=== PATIENT | female | born 1935 | race Caucasian/White ===

== ENCOUNTER 2017-12-20 20:33 | Observation (INO) | payer MEDICARE, BC ==
[2017-12-20] MEDS ORDERED: Ativan 2 MG/1 ML VIAL IV ONE (20:52)
[2017-12-20] MEDS ORDERED: TRANDATE 20 MG/5 ML SYRINGE IV ONE ×2 (20:52→20:57)
--- NOTE | 2017-12-20 20:58 | ERPHSYRPT ---
- History of Present Illness Time Seen by Provider: 12/20/17 20:38 Historian: patient Exam Limitations: no limitations Patient Subjective Stated Complaint: HTN Triage Nursing Assessment: Patient brought back to ER via w/c and transferred to bed per self. Patient A+O X 3. Patient complains of HTN. Patient states her blood pressure at home 210/90. Patient took and extra Lisinopril 5mg. Patient states she has hx of TIA and was told by her doctor to come to ER when her blood pressure gets high. Patient states she feels weak. Physician History: Pt started c/o generalized weakness, dizziness, chest pain about 2 hours ago, her blood pressure was elevated. She denies headaches, no SOB, cough, fever, vomiting, no focal weakness, facial numbness, visual changes, or slurred speech. She had similar episode 4 months ago, when she was diagnosed with TIA in [place], and worked up but does not take ASA or Plavix. She is alert and oriented x4, slightly lethargic. Timing/Duration: today, hour(s) (2) Activities at Onset: none Quality: pressure Location: substernal Chest Pain Radiation: no radiation Severity of Pain-Max: moderate Severity of Pain-Current: none Modifying Factors: Improves With: nothing Associated Symptoms: nausea, dizziness Prior Chest Pain/Cardiac Workup: no prior chest pain Nitro Today/Relief: no nitro taken today Aspirin Treatment Today: no aspirin today Allergies/Adverse Reactions: No Known Drug Allergies Allergy (Unverified 12/20/17 20:47) Home Medications: ALPRAZolam [Alprazolam] 1 tab PO BID 12/20/17 [History] Lisinopril 0.5 tab PO BID 12/20/17 [History] Hx Tetanus, Diphtheria Vaccination/Date Given: No Hx Influenza Vaccination/Date Given: No Hx Pneumococcal Vaccination/Date Given: Yes (4 months ago) Immunizations Up to Date: Yes - Review of Systems Constitutional: No Symptoms Respiratory: No Symptoms Cardiac: Chest Pain Abdominal/Gastrointestinal: Nausea Neurological: Dizziness All Other Systems: Reviewed and Negative - Past Medical History Pertinent Past Medical History: Yes Neurological History: TIA ENT History: No Pertinent History Cardiac History: Hypertension Respiratory History: No Pertinent History Endocrine Medical History: No Pertinent History Musculoskeletal History: No Pertinent History GI Medical History: No Pertinent History History: No Pertinent History Psycho-Social History: No Pertinent History Female Reproductive Disorders: No Pertinent History - Past Surgical History Past Surgical History: Yes Neuro Surgical History: No Pertinent History Cardiac: No Pertinent History Respiratory: No Pertinent History Gastrointestinal: No Pertinent History Genitourinary: No Pertinent History Musculoskeletal: Joint Replacement Female Surgical History: No Pertinent History Other Surgical History: Right knee 4 years ago - Social History Smoking Status: Never smoker Exposure to second hand smoke: No Drug Use: none Patient Lives Alone: No - Female History Hx Last Menstrual Period: Menopausal Hx Now: No - Nursing Vital Signs Nursing Vital Signs: Initial Vital Signs Pulse Rate 98 H 12/20/17 20:35 Respiratory Rate 22 12/20/17 20:35 Blood Pressure 217/105 12/20/17 20:35 O2 Sat by Pulse Oximetry 98 12/20/17 20:35 Pain Scale Pain Intensity 0 - Physical Exam General Appearance: no apparent distress, alert Eye Exam: PERRL/EOMI, eyes nml inspection Ears, Nose, Throat Exam: normal ENT inspection, pharynx normal, moist mucous membranes Neck Exam: normal inspection, non-tender, supple, No carotid bruit, No JVD Respiratory Exam: normal breath sounds, lungs clear, airway intact, No chest tenderness, No respiratory distress Cardiovascular Exam: regular rate/rhythm, normal heart sounds, normal peripheral pulses, No murmur Gastrointestinal/Abdomen Exam: soft, normal bowel sounds, No tenderness, No distention, No mass, No guarding, No pulsatile mass Back Exam: normal inspection, No CVA tenderness Extremity Exam: normal inspection, No calf tenderness, No adriano's sign, No pedal edema Neurologic Exam: alert, oriented x 3, soaker meat II-XII nml as tested, normal mood/ affect, sensation nml, other (NIH scale: 0), No motor deficits, No motor weakness, No facial droop Skin Exam: normal color, warm, dry, No rash Lymphatic Exam: No adenopathy SpO2 Interpretation: normal SpO2: 98 Oxygen Delivery: Room Air - Course Nursing assessment & vital signs reviewed: Yes EKG Interpreted by Me: RATE (89/min), Left [place] Deviation, NORMAL INTERVALS, Non -specific ST Changes, Other ([facility]) - Radiology Exams Chest X-ray Interpretation: Interpreted by me, Negative - CT Exams Head CT Interpretation: Negative, Tele-radiologist Report Ordered Tests: Active Orders 24 hr Category Date Time Status Electric Power Machine Operator STAT Care 12/20/17 20:51 Active EKG-ER Only STAT Care 12/20/17 20:50 Active IV Insertion STAT Care 12/20/17 20:50 Active Oxygen-ED Only NASAL CANNULA 2 lpm Care 12/20/17 20:50 Active CHEST 1 VIEW (PORTABLE) Stat Exams 12/20/17 20:50 Taken HEAD WITHOUT CONTRAST [CT] Stat Exams 12/20/17 20:52 Taken CBC W DIFF Stat Lab 12/20/17 21:00 Results CK-Creatinine Phosphokinase Stat Lab 12/20/17 21:00 Completed CMP Stat Lab 12/20/17 21:00 Completed Erythrocyte Sedimentation Rate Stat Lab 12/20/17 21:00 Results NT PRO BNP Stat Lab 12/20/17 21:00 Completed PROTIME WITH INR Stat Lab 12/20/17 21:00 Completed PTT Stat Lab 12/20/17 21:00 Completed TROPONIN Q3H Lab 12/20/17 21:00 Completed TROPONIN Q3H Lab 12/21/17 00:00 Ordered TROPONIN Q3H Lab 12/21/17 03:00 Ordered TROPONIN Q3H Lab 12/21/17 06:00 Ordered TROPONIN Q3H Lab 12/21/17 09:00 Ordered UA W/RFX UR CULTURE Stat Lab 12/20/17 20:50 Uncollected Medication Summary Discontinued Medications Generic Name Dose Route Start Last Admin Trade Name Freq PRN Reason Stop Dose Admin Labetalol HCl 20 mg 12/20/17 20:52 12/20/17 20:59 Trandate 20 Mg/5 Ml Syringe IV 12/20/17 20:53 20 mg STAT ONE Administration Labetalol HCl Confirm 12/20/17 20:57 Trandate 20 Mg/5 Ml Syringe Administered 12/20/17 20:58 Dose 20 mg IV .STK-MED ONE Lorazepam 0.5 mg 12/20/17 20:52 Ativan 2 Mg/1 Ml Vial IV 12/20/17 20:53 STAT ONE Lab/Rad Data: Laboratory Result Diagrams 12/20/17 21:00 12/20/17 21:00 Laboratory Results 12/20/17 12/20/17 12/20/17 Range/Units 21:00 21:00 21:00 WBC (4.0-10.5) K/mm3 RBC (4.1-5.4) M/mm3 Hgb (12.0-16.0) gm/dl Hct (35-47) % MCV (78-100) fl MCH (26-32) pg MCHC (32-36) g/dl RDW (11.5-14.0) % Plt Count (150-450) K/mm3 MPV (6-9.5) fl Gran % (36.0-66.0) % Eos # (Auto) (0-0.5) Absolute Lymphs (auto) (1.0-4.6) Absolute Monos (auto) (0.0-1.3) Lymphocytes % (24.0-44.0) % Monocytes % (0.0-12.0) % Eosinophils % (0.00-5.0) % Basophils % (0.0-0.4) % Absolute Granulocytes (1.4-6.9) Basophils # (0-0.4) ESR PT 11.0 (9.95-12.35) SECONDS INR 0.95 (0.8-3.0) APTT 18.7 L (25.3-37.0) SECONDS Sodium 140 (137-145) mmol/L Potassium 3.8 (3.5-5.1) mmol/L Chloride 104 (98-107) mmol/L Carbon Dioxide 26 (22-30) mmol/L Anion Gap 13.6 (5-15) MEQ/L BUN 13 (7-17) mg/dL Creatinine 0.87 (0.52-1.04) mg/dL Estimated GFR > 60.0 ML/MIN Glucose 98 (74-106) mg/dL Calcium 10.0 (8.4-10.2) mg/dL Total Bilirubin 0.40 (0.2-1.3) mg/dL AST 30 (14-36) U/L ALT 22 (0-35) U/L Alkaline Phosphatase 89 (38-126) U/L Creatine Kinase 76 (30-135) U/L Troponin I < 0.012 (0.000-0.034) ng/mL NT-Pro-B Natriuret Pep 54.8 (0-1800) pg/mL Serum Total Protein 7.6 (6.3-8.2) g/dL Albumin 4.9 (3.5-5.0) g/dL 12/20/17 Range/Units 21:00 WBC 3.1 L (4.0-10.5) K/mm3 RBC 4.82 (4.1-5.4) M/mm3 Hgb 14.3 (12.0-16.0) gm/dl Hct 42.7 (35-47) % MCV 88.6 (78-100) fl MCH 29.7 (26-32) pg MCHC 33.5 (32-36) g/dl RDW 14.7 H (11.5-14.0) % Plt Count 89 L (150-450) K/mm3 MPV 12.1 H (6-9.5) fl Gran % 41.9 (36.0-66.0) % Eos # (Auto) 0.01 (0-0.5) Absolute Lymphs (auto) 1.29 (1.0-4.6) Absolute Monos (auto) 0.41 (0.0-1.3) Lymphocytes % 41.9 (24.0-44.0) % Monocytes % 13.3 H (0.0-12.0) % Eosinophils % 0.3 (0.00-5.0) % Basophils % 2.6 (0.0-0.4) % Absolute Granulocytes 1.29 L (1.4-6.9) Basophils # 0.08 (0-0.4) ESR Pending PT (9.95-12.35) SECONDS INR (0.8-3.0) APTT (25.3-37.0) SECONDS Sodium (137-145) mmol/L Potassium (3.5-5.1) mmol/L Chloride (98-107) mmol/L Carbon Dioxide (22-30) mmol/L Anion Gap (5-15) MEQ/L BUN (7-17) mg/dL Creatinine (0.52-1.04) mg/dL Estimated GFR ML/MIN Glucose (74-106) mg/dL Calcium (8.4-10.2) mg/dL Total Bilirubin (0.2-1.3) mg/dL AST (14-36) U/L ALT (0-35) U/L Alkaline Phosphatase (38-126) U/L Creatine Kinase (30-135) U/L Troponin I (0.000-0.034) ng/mL NT-Pro-B Natriuret Pep (0-1800) pg/mL Serum Total Protein (6.3-8.2) g/dL Albumin (3.5-5.0) g/dL - Progress Progress: improved Air Movement: good Progress Note: 12/20/17 23:01 Pt states, she feels better, denies headaches or chest pain, more comfortable and alert, blood pressure: 179/84. I called Dr Ellington, discussed our results and her current condition with him, he agreed to admit her to telemetry for observation with Chest Pain, Hypertensive crisis, possible TIA. Blood Culture(s) Obtained: No Antibiotics given: No Discussed with .: Alfred Will see patient in: hospital (observation) Counseled pt/family regarding: lab results, diagnosis, need for follow-up, rad results - Departure Time of Disposition: 23:04 Departure Disposition: Observation Clinical Impression: Hypertensive crisis, TIA (transient ischemic attack) Chest pain Qualifiers: Chest pain type: unspecified Qualified Code(s): R07.9 - Chest pain, unspecified Condition: Stable Critical Care Time: Yes Critical Care Time(excluding separately billable procedures): 30-74 minutes Referrals: JUSTINA ELLINGTON MD [Primary Care Provider] - Instructions: Malignant Hypertension (DC)
[2017-12-20 21:14] LABS: INR 0.95 (0.8-3.0)
[2017-12-20 21:17] LABS: PTT 18.7 SECONDS (25.3-37.0)
[2017-12-20 21:29] LABS: ALBUMIN 4.9 g/dL (3.5-5.0); ALKALINE PHOSPHATASE 89 U/L (38-126); ANION GAP 13.6 MEQ/L (5-15); BLOOD UREA NITROGEN 13 mg/dL (7-17); CHLORIDE 104 mmol/L (98-107); CK-Creatinine Phosphokinase 76 U/L (30-135); Carbon Dioxide 26 mmol/L (22-30); Creatinine 1 0.87 mg/dL (0.52-1.04); Glucose 98 mg/dL (74-106); NT PRO BNP 54.8 pg/mL (0-1800); Potassium 3.8 mmol/L (3.5-5.1); SGOT/AST 30 U/L (14-36); SGPT/ALT 22 U/L (0-35); SODIUM 140 mmol/L (137-145); Total Protein 7.6 g/dL (6.3-8.2)
[2017-12-20 22:09] LABS: BASOPHIL % 2.6 % (0.0-0.4); Basophil (Absolute #) 0.08 (0-0.4); Eosinophil % 0.3 % (0.00-5.0); Eosinophil (Absolute #) 0.01 (0-0.5); Granulocyte Absolute (ANC) 1.29 (1.4-6.9); Granulocytes % 41.9 % (36.0-66.0); Hematocrit 42.7 % (35-47); Hemoglobin 14.3 gm/dl (12.0-16.0); Lymphocyte (Absolute #) 1.29 (1.0-4.6); Lymphocytes % 41.9 % (24.0-44.0); Mean Cell Volume 88.6 fl (78-100); Mean Corpuscular Hemoglobin 29.7 pg (26-32); Mean Corpuscular Hgb Concent. 33.5 g/dl (32-36); Mean Platelet Volume 12.1 fl (6-9.5); Monocyte (Absolute #) 0.41 (0.0-1.3); Monocytes % 13.3 % (0.0-12.0); Platelet Count 89 K/mm3 (150-450); Red Blood Count 4.82 M/mm3 (4.1-5.4); Red Cell Distribution Width 14.7 % (11.5-14.0); White Blood Count 3.1 K/mm3 (4.0-10.5)
[2017-12-20] MEDS ORDERED: Ativan 2 MG/1 ML VIAL ONE (22:59)
[2017-12-20] MEDS ORDERED: Zofran 4 MG/2 ML VIAL IV PRN (23:04)
[2017-12-20] MEDS ORDERED: MAALOX ES 30 ML UNIT DOSE PO PRN (23:04)
[2017-12-20] MEDS ORDERED: TYLENOL 325 MG PO PRN (23:04)
[2017-12-20] MEDS ORDERED: MILK OF MAGNESIA 30 ML PO PRN (23:04)
[2017-12-20] MEDS ORDERED: Senokot-S Tablet PO PRN (23:04)
[2017-12-20] MEDS ORDERED: TRANDATE 20 MG/5 ML SYRINGE IV PRN (23:06)
[2017-12-20 23:09] LABS: Erythrocyte Sedimentation Rate 5 mm/hr (0-20)
[2017-12-20] MEDS ORDERED: Ecotrin 325 MG ONE (23:14)
[2017-12-21 04:50] LABS: Appearance CLEAR (CLEAR); Bilirubin NEGATIVE (NEGATIVE); Blood SMALL Ery/ul (0-5); Glucose NEGATIVE (NEGATIVE); Ketones NEGATIVE (NEGATIVE); Leukocyte Esterase NEGATIVE (NEGATIVE); Nitrite NEGATIVE (NEGATIVE); Protein,Urine Dip NEGATIVE (Negative); Specific Gravity 1.009 (1.005-1.025); Urobilinogen NEGATIVE mg/dL (0-1)
[2017-12-21 05:01] LABS: Risk Ratio 2.1
[2017-12-21 05:04] LABS: Slide Review 1 YES
[2017-12-21] MEDS ORDERED: TRANDATE 20 MG/5 ML SYRINGE IV PRN (06:45)
[2017-12-21] MEDS ORDERED: TRANDATE 100MG/20 ML MDV IV PRN ×2 (07:11→07:15)
[2017-12-21 07:12] VITALS: PULSE 79
--- NOTE | 2017-12-21 08:34 | XRAY ---
Indication: Chest pain. Comparison: July 11, 2008. Portable chest again demonstrates left base subsegmental atelectasis/scarring. Remaining heart and lungs normal. Bony thorax intact again with mild osteopenia and degenerative changes. No new/acute findings. Impression: Stable nonacute chest with chronic features.
--- NOTE | 2017-12-21 08:36 | XRAY ---
Indication: Dizziness, hypertension, and chest pain. History of TIA. Multiple contiguous axial images obtained through the head without contrast. Comparison: July 11, 2008. Left external ear hearing aid produces mild beam artifact. Ventriculosulcal pattern appears symmetric. No acute intracranial hemorrhage, abnormal extra-axial fluid collection, or mass effect. Fourth ventricle is midline without hydrocephalus. North-white matter differentiation is preserved. Bony calvarium intact. Visualized paranasal sinuses and mastoid air cells are clear. Impression: Beam artifact from left hearing aid. Remaining CT head without contrast exam is again grossly normal. CT DI 66.90
[2017-12-21] MEDS ORDERED: Ecotrin 325 MG PO SCH (10:00)
[2017-12-21] MEDS ORDERED: xanAX 0.25 MG PO SCH (11:00)
[2017-12-21] MEDS ORDERED: Zestril 5 MG PO SCH (11:00)
[2017-12-21 11:54] VITALS: O2SAT 97
[2017-12-21 12:01] VITALS: BP 178/78
--- NOTE | 2017-12-21 12:20 | PCM.SSS ---
History of Present Illness - Chief Complaint Chief Complaint: very high blood pressure History of Present Illness: is a 82 year old female. Pt started c/o generalized weakness, dizziness, chest pain about 2 hours ago, her blood pressure was elevated. She denies headaches, no SOB, cough, fever, vomiting, no focal weakness, facial numbness, visual changes, or slurred speech. She had similar episode 4 months ago, when she was diagnosed with TIA in [place], and worked up but does not take ASA or Plavix. She is alert and oriented x4, slightly lethargic. - Review of Systems Constitutional: No Fever, No Chills Eyes: No Symptoms Ears, Nose, & Throat: No Symptoms Respiratory: No Cough, No Short Of Breath Cardiac: No Chest Pain, No Edema, No Syncope Abdominal/Gastrointestinal: No Abdominal Pain, No Nausea, No Vomiting, No Diarrhea Genitourinary Symptoms: No Dysuria Musculoskeletal: No Back Pain, No Neck Pain Skin: No Rash Neurological: No Dizziness, No Focal Weakness, No Sensory Changes Psychological: No Symptoms Endocrine: No Symptoms Hematologic/Lymphatic: No Symptoms Immunological/Allergic: No Symptoms Medications & Allergies Home Medications: Home Medication List ALPRAZolam [Alprazolam] 0.25 mg PO BID 12/20/17 [History Confirmed 12/21/17] Lisinopril 5 mg PO BID #60 tablet 12/21/17 [Rx] Rosuvastatin Calcium [Crestor] 5 mg PO HS 12/21/17 [History Confirmed 12/21/17] Allergies/Adverse Reactions: Allergies Allergy/AdvReac Type Severity Reaction Status Date / Time No Known Drug Allergies Allergy Verified 12/21/17 00:02 - Past Medical History Past Medical History: Yes Neurological History: TIA ENT History: No Pertinent History Cardiac History: Hypertension Respiratory History: No Pertinent History Endocrine Medical History: No Pertinent History Musculoskelatal History: Arthritis GI Medical History: No Pertinent History History: No Pertinent History Pyscho-Social History: No Pertinent History Reproductive Disorders: No Pertinent History - Female History Hx Last Menstrual Period: Menopausal Are you now?: No - Past Surgical History Past Surgical History: Yes Neuro Surgical History: No Pertinent History Cardiac History: No Pertinent History Respiratory Surgery: No Pertinent History GI Surgical History: No Pertinent History Genitourinary Surgical Hx: No Pertinent History Musculskeletal Surgical Hx: Joint Replacement Female Surgical History: No Pertinent History Other Surgical History: Right knee 4 years ago - Social History Smoking Status: Never smoker Exposure to second hand smoke: No Alcohol: None Drug Use: none - Physical Exam Vital Signs: Vital Signs - 24 hr Temp Pulse Resp BP Pulse Ox 12/21/17 12:01 178/78 12/21/17 11:53 97 12/21/17 10:02 20 183/79 12/21/17 08:00 96 12/21/17 07:11 97.7 F 79 20 187/79 96 12/21/17 06:16 181/86 12/21/17 05:30 196/84 12/21/17 04:00 98.5 F 86 24 192/91 97 12/21/17 00:01 97.7 F 75 18 189/79 95 12/21/17 00:00 95 12/20/17 23:59 97.7 F 75 20 189/79 95 12/20/17 23:04 98 12/20/17 22:55 74 20 179/84 98 12/20/17 22:06 79 18 175/96 97 12/20/17 21:06 77 173/88 12/20/17 21:03 86 200/85 12/20/17 20:35 98 H 22 217/105 98 Oxygen-Last 24 hours O2 Percentage 2 Liters = 28% O2 Percentage 2 Liters = 28% General Appearance: no apparent distress, alert Neurologic Exam: alert, oriented x 3, cooperative, normal mood/affect, nml cerebellar function, nml station & gait, sensation nml, No motor deficits Eye Exam: PERRL/EOMI, eyes nml inspection Ears, Nose, Throat Exam: normal ENT inspection, TMs normal, pharynx normal, moist mucous membranes Neck Exam: normal inspection, non-tender, supple, full range of motion Respiratory Exam: normal breath sounds, lungs clear, No respiratory distress Cardiovascular Exam: regular rate/rhythm, normal heart sounds, normal peripheral pulses Gastrointestinal/Abdomen Exam: soft, normal bowel sounds, No tenderness, No mass Back Exam: normal inspection, normal range of motion, No CVA tenderness, No vertebral tenderness Extremity Exam: normal inspection, normal range of motion, pelvis stable Skin Exam: normal color, warm, dry, No rash Lymphatic Exam: No adenopathy Results - Labs Lab/Micro Results: Lab Results-Last 24 Hours 12/20/17 12/20/17 12/20/17 Range/Units 21:00 21:00 21:00 WBC 3.1 L (4.0-10.5) K/mm3 RBC 4.82 (4.1-5.4) M/mm3 Hgb 14.3 (12.0-16.0) gm/dl Hct 42.7 (35-47) % MCV 88.6 (78-100) fl MCH 29.7 (26-32) pg MCHC 33.5 (32-36) g/dl RDW 14.7 H (11.5-14.0) % Plt Count 89 L (150-450) K/mm3 MPV 12.1 H (6-9.5) fl Gran % 41.9 (36.0-66.0) % Eos # (Auto) 0.01 (0-0.5) Absolute Lymphs (auto) 1.29 (1.0-4.6) Absolute Monos (auto) 0.41 (0.0-1.3) Lymphocytes % 41.9 (24.0-44.0) % Monocytes % 13.3 H (0.0-12.0) % Eosinophils % 0.3 (0.00-5.0) % Basophils % 2.6 (0.0-0.4) % Absolute Granulocytes 1.29 L (1.4-6.9) Basophils # 0.08 (0-0.4) ESR 5 (0-20) mm/hr PT 11.0 (9.95-12.35) SECONDS INR 0.95 (0.8-3.0) APTT 18.7 L (25.3-37.0) SECONDS Sodium 140 (137-145) mmol/L Potassium 3.8 (3.5-5.1) mmol/L Chloride 104 (98-107) mmol/L Carbon Dioxide 26 (22-30) mmol/L Anion Gap 13.6 (5-15) MEQ/L BUN 13 (7-17) mg/dL Creatinine 0.87 (0.52-1.04) mg/dL Estimated GFR > 60.0 ML/MIN Glucose 98 (74-106) mg/dL Calcium 10.0 (8.4-10.2) mg/dL Total Bilirubin 0.40 (0.2-1.3) mg/dL AST 30 (14-36) U/L ALT 22 (0-35) U/L Alkaline Phosphatase 89 (38-126) U/L Creatine Kinase 76 (30-135) U/L Troponin I (0.000-0.034) ng/mL NT-Pro-B Natriuret Pep 54.8 (0-1800) pg/mL Serum Total Protein 7.6 (6.3-8.2) g/dL Albumin 4.9 (3.5-5.0) g/dL Triglycerides (30-150) mg/dL Cholesterol (50-200) mg/dL LDL Cholesterol (30-100) mg/dL HDL Cholesterol (40-60) mg/dL Heart Disease Risk Ratio Urine Color (YELLOW) Urine Appearance (CLEAR) Urine pH (5-6) Ur Specific Jackson (1.005-1.025) Urine Protein (Negative) Urine Ketones (NEGATIVE) Urine Blood (0-5) Nitesh/ul Urine Nitrite (NEGATIVE) Urine Bilirubin (NEGATIVE) Urine Urobilinogen (0-1) mg/dL Ur Leukocyte Esterase (NEGATIVE) Urine WBC (Auto) (0-5) /HPF Urine RBC (Auto) (0-2) /HPF U Epithel Cells (Auto) (FEW) /HPF Urine Mucus (Auto) (NEGATIVE) /HPF Urine Culture Reflexed (NO) Urine Glucose (NEGATIVE) mg/dL Slides for Path Review YES 12/20/17 12/21/17 12/21/17 Range/Units 21:00 00:40 03:30 WBC (4.0-10.5) K/mm3 RBC (4.1-5.4) M/mm3 Hgb (12.0-16.0) gm/dl Hct (35-47) % MCV (78-100) fl MCH (26-32) pg MCHC (32-36) g/dl RDW (11.5-14.0) % Plt Count (150-450) K/mm3 MPV (6-9.5) fl Gran % (36.0-66.0) % Eos # (Auto) (0-0.5) Absolute Lymphs (auto) (1.0-4.6) Absolute Monos (auto) (0.0-1.3) Lymphocytes % (24.0-44.0) % Monocytes % (0.0-12.0) % Eosinophils % (0.00-5.0) % Basophils % (0.0-0.4) % Absolute Granulocytes (1.4-6.9) Basophils # (0-0.4) ESR (0-20) mm/hr PT (9.95-12.35) SECONDS INR (0.8-3.0) APTT (25.3-37.0) SECONDS Sodium (137-145) mmol/L Potassium (3.5-5.1) mmol/L Chloride (98-107) mmol/L Carbon Dioxide (22-30) mmol/L Anion Gap (5-15) MEQ/L BUN (7-17) mg/dL Creatinine (0.52-1.04) mg/dL Estimated GFR ML/MIN Glucose (74-106) mg/dL Calcium (8.4-10.2) mg/dL Total Bilirubin (0.2-1.3) mg/dL AST (14-36) U/L ALT (0-35) U/L Alkaline Phosphatase (38-126) U/L Creatine Kinase (30-135) U/L Troponin I < 0.012 0.027 0.027 (0.000-0.034) ng/mL NT-Pro-B Natriuret Pep (0-1800) pg/mL Serum Total Protein (6.3-8.2) g/dL Albumin (3.5-5.0) g/dL Triglycerides (30-150) mg/dL Cholesterol (50-200) mg/dL LDL Cholesterol (30-100) mg/dL HDL Cholesterol (40-60) mg/dL Heart Disease Risk Ratio Urine Color (YELLOW) Urine Appearance (CLEAR) Urine pH (5-6) Ur Specific Jackson (1.005-1.025) Urine Protein (Negative) Urine Ketones (NEGATIVE) Urine Blood (0-5) Nitesh/ul Urine Nitrite (NEGATIVE) Urine Bilirubin (NEGATIVE) Urine Urobilinogen (0-1) mg/dL Ur Leukocyte Esterase (NEGATIVE) Urine WBC (Auto) (0-5) /HPF Urine RBC (Auto) (0-2) /HPF U Epithel Cells (Auto) (FEW) /HPF Urine Mucus (Auto) (NEGATIVE) /HPF Urine Culture Reflexed (NO) Urine Glucose (NEGATIVE) mg/dL Slides for Path Review 12/21/17 12/21/17 12/21/17 Range/Units 03:30 03:35 04:41 WBC (4.0-10.5) K/mm3 RBC (4.1-5.4) M/mm3 Hgb (12.0-16.0) gm/dl Hct (35-47) % MCV (78-100) fl MCH (26-32) pg MCHC (32-36) g/dl RDW (11.5-14.0) % Plt Count (150-450) K/mm3 MPV (6-9.5) fl Gran % (36.0-66.0) % Eos # (Auto) (0-0.5) Absolute Lymphs (auto) (1.0-4.6) Absolute Monos (auto) (0.0-1.3) Lymphocytes % (24.0-44.0) % Monocytes % (0.0-12.0) % Eosinophils % (0.00-5.0) % Basophils % (0.0-0.4) % Absolute Granulocytes (1.4-6.9) Basophils # (0-0.4) ESR (0-20) mm/hr PT (9.95-12.35) SECONDS INR (0.8-3.0) APTT (25.3-37.0) SECONDS Sodium (137-145) mmol/L Potassium (3.5-5.1) mmol/L Chloride (98-107) mmol/L Carbon Dioxide (22-30) mmol/L Anion Gap (5-15) MEQ/L BUN (7-17) mg/dL Creatinine (0.52-1.04) mg/dL Estimated GFR ML/MIN Glucose (74-106) mg/dL Calcium (8.4-10.2) mg/dL Total Bilirubin (0.2-1.3) mg/dL AST (14-36) U/L ALT (0-35) U/L Alkaline Phosphatase (38-126) U/L Creatine Kinase (30-135) U/L Troponin I 0.019 (0.000-0.034) ng/mL NT-Pro-B Natriuret Pep (0-1800) pg/mL Serum Total Protein (6.3-8.2) g/dL Albumin (3.5-5.0) g/dL Triglycerides 93 (30-150) mg/dL Cholesterol 190 (50-200) mg/dL LDL Cholesterol 68 (30-100) mg/dL HDL Cholesterol 90 H (40-60) mg/dL Heart Disease Risk Ratio 2.1 Urine Color YELLOW (YELLOW) Urine Appearance CLEAR (CLEAR) Urine pH 6.0 (5-6) Ur Specific Jackson 1.009 (1.005-1.025) Urine Protein NEGATIVE (Negative) Urine Ketones NEGATIVE (NEGATIVE) Urine Blood SMALL (0-5) Nitesh/ul Urine Nitrite NEGATIVE (NEGATIVE) Urine Bilirubin NEGATIVE (NEGATIVE) Urine Urobilinogen NEGATIVE (0-1) mg/dL Ur Leukocyte Esterase NEGATIVE (NEGATIVE) Urine WBC (Auto) 0-2 (0-5) /HPF Urine RBC (Auto) 0-2 (0-2) /HPF U Epithel Cells (Auto) RARE (FEW) /HPF Urine Mucus (Auto) SLIGHT (NEGATIVE) /HPF Urine Culture Reflexed no (NO) Urine Glucose NEGATIVE (NEGATIVE) mg/dL Slides for Path Review 12/21/17 Range/Units 09:19 WBC (4.0-10.5) K/mm3 RBC (4.1-5.4) M/mm3 Hgb (12.0-16.0) gm/dl Hct (35-47) % MCV (78-100) fl MCH (26-32) pg MCHC (32-36) g/dl RDW (11.5-14.0) % Plt Count (150-450) K/mm3 MPV (6-9.5) fl Gran % (36.0-66.0) % Eos # (Auto) (0-0.5) Absolute Lymphs (auto) (1.0-4.6) Absolute Monos (auto) (0.0-1.3) Lymphocytes % (24.0-44.0) % Monocytes % (0.0-12.0) % Eosinophils % (0.00-5.0) % Basophils % (0.0-0.4) % Absolute Granulocytes (1.4-6.9) Basophils # (0-0.4) ESR (0-20) mm/hr PT (9.95-12.35) SECONDS INR (0.8-3.0) APTT (25.3-37.0) SECONDS Sodium (137-145) mmol/L Potassium (3.5-5.1) mmol/L Chloride (98-107) mmol/L Carbon Dioxide (22-30) mmol/L Anion Gap (5-15) MEQ/L BUN (7-17) mg/dL Creatinine (0.52-1.04) mg/dL Estimated GFR ML/MIN Glucose (74-106) mg/dL Calcium (8.4-10.2) mg/dL Total Bilirubin (0.2-1.3) mg/dL AST (14-36) U/L ALT (0-35) U/L Alkaline Phosphatase (38-126) U/L Creatine Kinase (30-135) U/L Troponin I 0.013 (0.000-0.034) ng/mL NT-Pro-B Natriuret Pep (0-1800) pg/mL Serum Total Protein (6.3-8.2) g/dL Albumin (3.5-5.0) g/dL Triglycerides (30-150) mg/dL Cholesterol (50-200) mg/dL LDL Cholesterol (30-100) mg/dL HDL Cholesterol (40-60) mg/dL Heart Disease Risk Ratio Urine Color (YELLOW) Urine Appearance (CLEAR) Urine pH (5-6) Ur Specific Jackson (1.005-1.025) Urine Protein (Negative) Urine Ketones (NEGATIVE) Urine Blood (0-5) Nitesh/ul Urine Nitrite (NEGATIVE) Urine Bilirubin (NEGATIVE) Urine Urobilinogen (0-1) mg/dL Ur Leukocyte Esterase (NEGATIVE) Urine WBC (Auto) (0-5) /HPF Urine RBC (Auto) (0-2) /HPF U Epithel Cells (Auto) (FEW) /HPF Urine Mucus (Auto) (NEGATIVE) /HPF Urine Culture Reflexed (NO) Urine Glucose (NEGATIVE) mg/dL Slides for Path Review - Radiology Impressions Radiology Exams & Impressions: Radiology Procedures Category Date Time Status CHEST 1 VIEW (PORTABLE) Stat Exams 12/20/17 20:50 Completed HEAD WITHOUT CONTRAST [CT] Stat Exams 12/20/17 20:52 Completed - Other Procedures and Tests Respiratory Therapy 12/22/17 05:00 EKG ROUTINE 12/23/17 05:00 EKG ROUTINE Assessment/Plan (1) Hypertensive crisis Current Visit: Yes Status: Acute Assessment & Plan: Last Vital Signs Temp 97.7 F 12/21/17 07:11 Pulse 79 12/21/17 07:11 Resp 20 12/21/17 10:02 BP 178/78 12/21/17 12:01 Pulse Ox 97 12/21/17 11:53 Allergies No Known Drug Allergies Allergy (Verified 12/21/17 00:02) Active Medications Acetaminophen (Tylenol 325 Mg) 650 mg PO Q4H PRN PRN PRN Reason: PAIN AND/OR FEVER Stop: 01/19/18 23:03 Al Hydrox/Mg Hydrox/Simethicone (Maalox Es 30 Ml Unit Dose) 30 ml PO Q4H PRN PRN PRN Reason: INDIGESTION Stop: 01/19/18 23:03 Alprazolam (Xanax 0.25 Mg) 0.25 mg PO BID [facility] Stop: 01/20/18 10:59 Last Admin: 12/21/17 10:36 Dose: 0.25 mg Aspirin (Ecotrin 325 Mg) 325 mg PO DAILY [facility] Stop: 01/20/18 09:59 Last Admin: 12/21/17 09:59 Dose: 325 mg Labetalol HCl (Trandate 100mg/20 Ml Mdv) 20 mg IV Q6H PRN PRN PRN Reason: HYPERTENSION Stop: 01/20/18 07:10 Lisinopril (Zestril 5 Mg) 2.5 mg PO BID [facility] Stop: 01/20/18 10:59 Last Admin: 12/21/17 10:36 Dose: 2.5 mg Magnesium Hydroxide (Milk Of Magnesia 30 Ml) 30 - 60 ml PO QDP PRN PRN Reason: CONSTIPATION Stop: 01/19/18 23:03 Ondansetron HCl (Zofran 4 Mg/2 Ml Vial) 4 mg IV Q4H PRN PRN PRN Reason: NAUSEA/VOMITING Stop: 01/19/18 23:03 Senna/Docusate Sodium (Senokot-S Tablet) 2 udtab PO BID PRN PRN PRN Reason: CONSTIPATION Stop: 01/19/18 23:03 Simvastatin (Zocor 10mg) 10 mg PO HS [facility] Stop: 01/20/18 21:59 Intake & Output 12/21/17 12/22/17 11:59 11:59 Intake Total 720 Output Total 450 Balance 270 Weight 69 kg Orders 12/21/17 11:00 Alprazolam 0.25 mg [xanAX 0.25 MG] 0.25 mg PO BID Lisinopril 5 mg [Zestril 5 MG] 2.5 mg PO BID 12/21/17 22:00 Simvastatin 10 mg [Zocor 10MG] 10 mg PO HS 12/22/17 05:00 EKG ROUTINE 12/23/17 05:00 EKG ROUTINE Lab Tests 12/20/17 12/20/17 12/20/17 21:00 21:00 21:00 WBC 3.1 L RBC 4.82 Hgb 14.3 Hct 42.7 MCV 88.6 MCH 29.7 MCHC 33.5 RDW 14.7 H Plt Count 89 L MPV 12.1 H Gran % 41.9 Eos # (Auto) 0.01 Absolute Lymphs (auto) 1.29 Absolute Monos (auto) 0.41 Lymphocytes % 41.9 Monocytes % 13.3 H Eosinophils % 0.3 Basophils % 2.6 Absolute Granulocytes 1.29 L Basophils # 0.08 ESR 5 PT 11.0 INR 0.95 APTT 18.7 L Sodium 140 Potassium 3.8 Chloride 104 Carbon Dioxide 26 Anion Gap 13.6 BUN 13 Creatinine 0.87 Estimated GFR > 60.0 Glucose 98 Calcium 10.0 Total Bilirubin 0.40 AST 30 ALT 22 Alkaline Phosphatase 89 Creatine Kinase 76 Troponin I NT-Pro-B Natriuret Pep 54.8 Serum Total Protein 7.6 Albumin 4.9 Triglycerides Cholesterol LDL Cholesterol HDL Cholesterol Heart Disease Risk Ratio Urine Color Urine Appearance Urine pH Ur Specific Jackson Urine Protein Urine Ketones Urine Blood Urine Nitrite Urine Bilirubin Urine Urobilinogen Ur Leukocyte Esterase Urine WBC (Auto) Urine RBC (Auto) U Epithel Cells (Auto) Urine Mucus (Auto) Urine Culture Reflexed Urine Glucose Slides for Path Review YES 12/20/17 12/21/17 12/21/17 21:00 00:40 03:30 WBC RBC Hgb Hct MCV MCH MCHC RDW Plt Count MPV Gran % Eos # (Auto) Absolute Lymphs (auto) Absolute Monos (auto) Lymphocytes % Monocytes % Eosinophils % Basophils % Absolute Granulocytes Basophils # ESR PT INR APTT Sodium Potassium Chloride Carbon Dioxide Anion Gap BUN Creatinine Estimated GFR Glucose Calcium Total Bilirubin AST ALT Alkaline Phosphatase Creatine Kinase Troponin I < 0.012 0.027 0.027 NT-Pro-B Natriuret Pep Serum Total Protein Albumin Triglycerides Cholesterol LDL Cholesterol HDL Cholesterol Heart Disease Risk Ratio Urine Color Urine Appearance Urine pH Ur Specific Jackson Urine Protein Urine Ketones Urine Blood Urine Nitrite Urine Bilirubin Urine Urobilinogen Ur Leukocyte Esterase Urine WBC (Auto) Urine RBC (Auto) U Epithel Cells (Auto) Urine Mucus (Auto) Urine Culture Reflexed Urine Glucose Slides for Path Review 12/21/17 12/21/17 12/21/17 03:30 03:35 04:41 WBC RBC Hgb Hct MCV MCH MCHC RDW Plt Count MPV Gran % Eos # (Auto) Absolute Lymphs (auto) Absolute Monos (auto) Lymphocytes % Monocytes % Eosinophils % Basophils % Absolute Granulocytes Basophils # ESR PT INR APTT Sodium Potassium Chloride Carbon Dioxide Anion Gap BUN Creatinine Estimated GFR Glucose Calcium Total Bilirubin AST ALT Alkaline Phosphatase Creatine Kinase Troponin I 0.019 NT-Pro-B Natriuret Pep Serum Total Protein Albumin Triglycerides 93 Cholesterol 190 LDL Cholesterol 68 HDL Cholesterol 90 H Heart Disease Risk Ratio 2.1 Urine Color YELLOW Urine Appearance CLEAR Urine pH 6.0 Ur Specific Jackson 1.009 Urine Protein NEGATIVE Urine Ketones NEGATIVE Urine Blood SMALL Urine Nitrite NEGATIVE Urine Bilirubin NEGATIVE Urine Urobilinogen NEGATIVE Ur Leukocyte Esterase NEGATIVE Urine WBC (Auto) 0-2 Urine RBC (Auto) 0-2 U Epithel Cells (Auto) RARE Urine Mucus (Auto) SLIGHT Urine Culture Reflexed no Urine Glucose NEGATIVE Slides for Path Review 12/21/17 09:19 WBC RBC Hgb Hct MCV MCH MCHC RDW Plt Count MPV Gran % Eos # (Auto) Absolute Lymphs (auto) Absolute Monos (auto) Lymphocytes % Monocytes % Eosinophils % Basophils % Absolute Granulocytes Basophils # ESR PT INR APTT Sodium Potassium Chloride Carbon Dioxide Anion Gap BUN Creatinine Estimated GFR Glucose Calcium Total Bilirubin AST ALT Alkaline Phosphatase Creatine Kinase Troponin I 0.013 NT-Pro-B Natriuret Pep Serum Total Protein Albumin Triglycerides Cholesterol LDL Cholesterol HDL Cholesterol Heart Disease Risk Ratio Urine Color Urine Appearance Urine pH Ur Specific Jackson Urine Protein Urine Ketones Urine Blood Urine Nitrite Urine Bilirubin Urine Urobilinogen Ur Leukocyte Esterase Urine WBC (Auto) Urine RBC (Auto) U Epithel Cells (Auto) Urine Mucus (Auto) Urine Culture Reflexed Urine Glucose Slides for Path Review Code(s): I16.9 - HYPERTENSIVE CRISIS, UNSPECIFIED Hospital Summary - Hospital Course Hospital Course: Chief Complaint Diagnosis Hypertensive crisis/TIA Allergies Allergy/AdvReac Type Severity Reaction Status Date / Time No Known Drug Allergies Allergy Verified 12/21/17 00:02 Vital Signs (Last 24 hours) Temp Pulse Resp BP Pulse Ox 12/21/17 12:01 178/78 12/21/17 11:53 97 12/21/17 10:02 20 183/79 12/21/17 08:00 96 12/21/17 07:11 97.7 F 79 20 187/79 96 12/21/17 06:16 181/86 12/21/17 05:30 196/84 12/21/17 04:00 98.5 F 86 24 192/91 97 12/21/17 00:01 97.7 F 75 18 189/79 95 12/21/17 00:00 95 12/20/17 23:59 97.7 F 75 20 189/79 95 12/20/17 23:04 98 12/20/17 22:55 74 20 179/84 98 12/20/17 22:06 79 18 175/96 97 12/20/17 21:06 77 173/88 12/20/17 21:03 86 200/85 12/20/17 20:35 98 H 22 217/105 98 Home Medications Medication Instructions Recorded Confirmed Last Taken Type ALPRAZolam [Alprazolam] 0.25 mg PO BID 12/20/17 12/21/17 12/19/17 21:30 History Lisinopril 2.5 mg PO BID 12/20/17 12/21/17 12/20/17 17:30 History Rosuvastatin Calcium [Crestor] 5 mg PO HS 12/21/17 12/21/17 12/20/17 17:30 History Current Medications Generic Name Dose Route Start Last Admin Trade Name Freq PRN Reason Stop Dose Admin Acetaminophen 650 mg 12/20/17 23:04 Tylenol 325 Mg PO 01/19/18 23:03 Q4H PRN PRN PAIN AND/OR FEVER Al Hydrox/Mg Hydrox/Simethicone 30 ml 12/20/17 23:04 Maalox Es 30 Ml Unit Dose PO 01/19/18 23:03 Q4H PRN PRN INDIGESTION Alprazolam 0.25 mg 12/21/17 11:00 12/21/17 10:36 Xanax 0.25 Mg PO 01/20/18 10:59 0.25 mg BID LAKSHMI Administration Aspirin 325 mg 12/21/17 10:00 12/21/17 09:59 Ecotrin 325 Mg PO 01/20/18 09:59 325 mg DAILY LAKSHMI Administration Labetalol HCl 20 mg 12/21/17 07:15 Trandate 100mg/20 Ml Mdv IV 01/20/18 07:10 Q6H PRN PRN HYPERTENSION Lisinopril 2.5 mg 12/21/17 11:00 12/21/17 10:36 Zestril 5 Mg PO 01/20/18 10:59 2.5 mg BID LAKSHMI Administration Magnesium Hydroxide 30 - 60 ml 12/20/17 23:04 Milk Of Magnesia 30 Ml PO 01/19/18 23:03 QDP PRN CONSTIPATION Ondansetron HCl 4 mg 12/20/17 23:04 Zofran 4 Mg/2 Ml Vial IV 01/19/18 23:03 Q4H PRN PRN NAUSEA/VOMITING Senna/Docusate Sodium 2 udtab 12/20/17 23:04 Senokot-S Tablet PO 01/19/18 23:03 BID PRN PRN CONSTIPATION Simvastatin 10 mg 12/21/17 22:00 Zocor 10mg PO 01/20/18 21:59 HS [facility] Discontinued Medications Generic Name Dose Route Start Last Admin Trade Name Freq PRN Reason Stop Dose Admin Aspirin 325 mg 12/21/17 23:00 12/20/17 23:17 Ecotrin 325 Mg PO 12/21/17 23:01 325 mg STAT ONE Administration Aspirin Confirm 12/20/17 23:14 Ecotrin 325 Mg Administered 12/20/17 23:15 Dose 325 mg .ROUTE .STK-MED ONE Labetalol HCl 20 mg 12/20/17 20:52 12/20/17 20:59 Trandate 20 Mg/5 Ml Syringe IV 12/20/17 20:53 20 mg STAT ONE Administration Labetalol HCl Confirm 12/20/17 20:57 Trandate 20 Mg/5 Ml Syringe Administered 12/20/17 20:58 Dose 20 mg IV .STK-MED ONE Labetalol HCl 20 mg 12/20/17 23:06 12/21/17 04:01 Trandate 20 Mg/5 Ml Syringe IV 01/19/18 23:05 20 mg Q6H PRN Administration HYPERTENSION Labetalol HCl 20 mg 12/21/17 06:45 Trandate 20 Mg/5 Ml Syringe IV 01/20/18 06:44 Q6H PRN PRN HYPERTENSION Labetalol HCl 20 mg 12/21/17 07:11 Trandate 100mg/20 Ml Mdv IV 01/20/18 07:10 Q4H PRN PRN HYPERTENSION Lorazepam 0.5 mg 12/20/17 20:52 12/20/17 23:01 Ativan 2 Mg/1 Ml Vial IV 12/20/17 20:53 0.5 mg STAT ONE Administration Lorazepam Confirm 12/20/17 22:59 Ativan 2 Mg/1 Ml Vial Administered 12/20/17 23:00 Dose 2 mg .ROUTE .STK-MED ONE Intake & Output (Last 24 hours) 12/19/17 12/20/17 12/21/17 12/22/17 11:59 11:59 11:59 11:59 Intake Total 720 Output Total 450 Balance 270 Weight 69 kg Laboratory Results (Last 24 hours) 12/21/17 12/21/17 12/21/17 09:19 04:41 03:35 WBC RBC Hgb Hct MCV MCH MCHC RDW Plt Count MPV Gran % Eos # (Auto) Absolute Lymphs (auto) Absolute Monos (auto) Lymphocytes % Monocytes % Eosinophils % Basophils % Absolute Granulocytes Basophils # ESR PT INR APTT Sodium Potassium Chloride Carbon Dioxide Anion Gap BUN Creatinine Estimated GFR Glucose Calcium Total Bilirubin AST ALT Alkaline Phosphatase Creatine Kinase Troponin I 0.013 0.019 NT-Pro-B Natriuret Pep Serum Total Protein Albumin Triglycerides Cholesterol LDL Cholesterol HDL Cholesterol Heart Disease Risk Ratio Urine Color YELLOW Urine Appearance CLEAR Urine pH 6.0 Ur Specific Jackson 1.009 Urine Protein NEGATIVE Urine Ketones NEGATIVE Urine Blood SMALL Urine Nitrite NEGATIVE Urine Bilirubin NEGATIVE Urine Urobilinogen NEGATIVE Ur Leukocyte Esterase NEGATIVE Urine WBC (Auto) 0-2 Urine RBC (Auto) 0-2 U Epithel Cells (Auto) RARE Urine Mucus (Auto) SLIGHT Urine Culture Reflexed no Urine Glucose NEGATIVE Slides for Path Review 12/21/17 12/21/17 12/21/17 03:30 03:30 00:40 WBC RBC Hgb Hct MCV MCH MCHC RDW Plt Count MPV Gran % Eos # (Auto) Absolute Lymphs (auto) Absolute Monos (auto) Lymphocytes % Monocytes % Eosinophils % Basophils % Absolute Granulocytes Basophils # ESR PT INR APTT Sodium Potassium Chloride Carbon Dioxide Anion Gap BUN Creatinine Estimated GFR Glucose Calcium Total Bilirubin AST ALT Alkaline Phosphatase Creatine Kinase Troponin I 0.027 0.027 NT-Pro-B Natriuret Pep Serum Total Protein Albumin Triglycerides 93 Cholesterol 190 LDL Cholesterol 68 HDL Cholesterol 90 H Heart Disease Risk Ratio 2.1 Urine Color Urine Appearance Urine pH Ur Specific Jackson Urine Protein Urine Ketones Urine Blood Urine Nitrite Urine Bilirubin Urine Urobilinogen Ur Leukocyte Esterase Urine WBC (Auto) Urine RBC (Auto) U Epithel Cells (Auto) Urine Mucus (Auto) Urine Culture Reflexed Urine Glucose Slides for Path Review 12/20/17 12/20/17 12/20/17 21:00 21:00 21:00 WBC RBC Hgb Hct MCV MCH MCHC RDW Plt Count MPV Gran % Eos # (Auto) Absolute Lymphs (auto) Absolute Monos (auto) Lymphocytes % Monocytes % Eosinophils % Basophils % Absolute Granulocytes Basophils # ESR PT 11.0 INR 0.95 APTT 18.7 L Sodium 140 Potassium 3.8 Chloride 104 Carbon Dioxide 26 Anion Gap 13.6 BUN 13 Creatinine 0.87 Estimated GFR > 60.0 Glucose 98 Calcium 10.0 Total Bilirubin 0.40 AST 30 ALT 22 Alkaline Phosphatase 89 Creatine Kinase 76 Troponin I < 0.012 NT-Pro-B Natriuret Pep 54.8 Serum Total Protein 7.6 Albumin 4.9 Triglycerides Cholesterol LDL Cholesterol HDL Cholesterol Heart Disease Risk Ratio Urine Color Urine Appearance Urine pH Ur Specific Jackson Urine Protein Urine Ketones Urine Blood Urine Nitrite Urine Bilirubin Urine Urobilinogen Ur Leukocyte Esterase Urine WBC (Auto) Urine RBC (Auto) U Epithel Cells (Auto) Urine Mucus (Auto) Urine Culture Reflexed Urine Glucose Slides for Path Review 12/20/17 21:00 WBC 3.1 L RBC 4.82 Hgb 14.3 Hct 42.7 MCV 88.6 MCH 29.7 MCHC 33.5 RDW 14.7 H Plt Count 89 L MPV 12.1 H Gran % 41.9 Eos # (Auto) 0.01 Absolute Lymphs (auto) 1.29 Absolute Monos (auto) 0.41 Lymphocytes % 41.9 Monocytes % 13.3 H Eosinophils % 0.3 Basophils % 2.6 Absolute Granulocytes 1.29 L Basophils # 0.08 ESR 5 PT INR APTT Sodium Potassium Chloride Carbon Dioxide Anion Gap BUN Creatinine Estimated GFR Glucose Calcium Total Bilirubin AST ALT Alkaline Phosphatase Creatine Kinase Troponin I NT-Pro-B Natriuret Pep Serum Total Protein Albumin Triglycerides Cholesterol LDL Cholesterol HDL Cholesterol Heart Disease Risk Ratio Urine Color Urine Appearance Urine pH Ur Specific Jackson Urine Protein Urine Ketones Urine Blood Urine Nitrite Urine Bilirubin Urine Urobilinogen Ur Leukocyte Esterase Urine WBC (Auto) Urine RBC (Auto) U Epithel Cells (Auto) Urine Mucus (Auto) Urine Culture Reflexed Urine Glucose Slides for Path Review YES Orders (Last 24 hours) Category Date Time Status Bedrest with BRP/BSC ROUTINE Activity 12/20/17 23:05 Active Science Liaison STAT Care 12/20/17 20:51 Active Code Status Order ROUTINE Care 12/20/17 23:05 Active EKG-ER Only STAT Care 12/20/17 20:50 Active IV Care Q6H Care 12/20/17 23:05 Completed IV Insertion STAT Care 12/20/17 20:50 Completed Implement Chest Pain Pathway ROUTINE Care 12/20/17 23:05 Active Neuro Checks Q4H Care 12/20/17 23:06 Active Oxygen-ED Only NASAL CANNULA 2 lpm Care 12/20/17 20:[address] in Observation ROUTINE Care 12/20/17 23:05 Active Melissa Castillo ROUTINE Care 12/20/17 23:05 Active Telemetry ROUTINE Care 12/20/17 23:05 Active Weight,Daily 0600 Care 12/20/17 23:05 Active CHEST 1 VIEW (PORTABLE) Stat Exams 12/20/17 20:50 Completed HEAD WITHOUT CONTRAST [CT] Stat Exams 12/20/17 20:52 Completed CBC W DIFF Stat Lab 12/20/17 21:00 Completed CK-Creatinine Phosphokinase Stat Lab 12/20/17 21:00 Completed CMP Stat Lab 12/20/17 21:00 Completed Erythrocyte Sedimentation Rate Stat Lab 12/20/17 21:00 Completed LIPID PROFILE AM.LAB Lab 12/21/17 03:30 Completed NT PRO BNP Stat Lab 12/20/17 21:00 Completed PROTIME WITH INR Stat Lab 12/20/17 21:00 Completed PTT Stat Lab 12/20/17 21:00 Completed TROPONIN Q3H Lab 12/20/17 21:00 Completed TROPONIN Q3H Lab 12/21/17 00:40 Completed TROPONIN Q3H Lab 12/21/17 03:30 Completed TROPONIN Q3H Lab 12/21/17 03:35 Completed TROPONIN Q3H Lab 12/21/17 09:19 Completed UA W/RFX UR CULTURE Stat Lab 12/21/17 04:41 Completed Acetaminophen 325 mg [Tylenol 325 mg] Med 12/20/17 23:04 Active 650 mg PO Q4H PRN PRN Alprazolam 0.25 mg [xanAX 0.25 MG] Med 12/21/17 11:00 Active 0.25 mg PO BID Aspirin EC 325 mg [Ecotrin 325 MG] Med 12/20/17 23:14 Discontinued 325 mg .ROUTE .STK-MED ONE Aspirin EC 325 mg [Ecotrin 325 MG] Med 12/21/17 10:00 Active 325 mg PO DAILY Aspirin EC 325 mg [Ecotrin 325 MG] Med 12/21/17 23:00 Discontinued 325 mg PO STAT ONE Labetalol HCl 100 mg/20 ml [Trandate 100Mg/20 ml Mdv Med 12/21/17 07:11 Discontinued ] 20 mg IV Q4H PRN PRN Labetalol HCl 100 mg/20 ml [Trandate 100Mg/20 ml Mdv Med 12/21/17 07:15 Active ] 20 mg IV Q6H PRN PRN Labetalol HCl 20 mg/4 ml [Trandate 20 mg/5 ml Med 12/20/17 20:57 Discontinued Syringe] 20 mg IV .STK-MED ONE Labetalol HCl 20 mg/4 ml [Trandate 20 mg/5 ml Med 12/20/17 23:06 Discontinued Syringe] 20 mg IV Q6H PRN Labetalol HCl 20 mg/4 ml [Trandate 20 mg/5 ml Med 12/21/17 06:45 Discontinued Syringe] 20 mg IV Q6H PRN PRN Labetalol HCl 20 mg/4 ml [Trandate 20 mg/5 ml Med 12/20/17 20:52 Discontinued Syringe] 20 mg IV STAT ONE Lisinopril 5 mg [Zestril 5 MG] Med 12/21/17 11:00 Active 2.5 mg PO BID Lorazepam 2 mg/1 ml [Ativan 2 MG/1 ML VIAL] Med 12/20/17 20:52 Discontinued 0.5 mg IV STAT ONE Lorazepam 2 mg/1 ml [Ativan 2 MG/1 ML VIAL] Med 12/20/17 22:59 Discontinued 2 mg .ROUTE .STK-MED ONE Mag Hydrox/Al Hydrox/Simeth [Maalox Es 30 ml Unit Med 12/20/17 23:04 Active Dose] 30 ml PO Q4H PRN PRN Magnesium Hydroxide 30 ml [Milk of Magnesia 30 ml Med 12/20/17 23:04 Active ] 30 - 60 ml PO QDP PRN Ondansetron HCl 4 mg/2 ml [Zofran 4 MG/2 ML VIAL] Med 12/20/17 23:04 Active 4 mg IV Q4H PRN PRN Senna/Docusate Sodium Tab [Senokot-S Tablet] Med 12/20/17 23:04 Active 2 udtab PO BID PRN PRN Simvastatin 10 mg [Zocor 10MG] Med 12/21/17 22:00 Active 10 mg PO HS EKG Q8HX2,QAMX3,PRN RT 12/20/17 23:05 Completed EKG ROUTINE RT 12/22/17 05:00 Active EKG ROUTINE RT 12/23/17 05:00 Active Pulse Oximetry Q4H RT 12/20/17 23:05 Active Patient Care Notes (Last 24 hours) 12/21/17 05:55 Nursing Note by Sophie Her LATE ENTRY: 12.21.2017 0435 Patient called this nurse into room to standby as she went to the restroom, upon returning to bed this nurse noticed a large hematoma on patient's left knuckle area. Patient stated " Thats the area that lab girl stuck me when she was trying to draw my blood." supervisor toy assembly was notified and photographs were taken. Area was elevated on a pillow. Will continue to monitor. Initialized on 12/21/17 05:55 - END OF NOTE - Vitals & Intake/Output Vital Signs: Vital Signs Temperature 97.7 F 12/21/17 07:11 Pulse Rate 79 12/21/17 07:11 Respiratory Rate 20 12/21/17 10:02 Blood Pressure 178/78 12/21/17 12:01 O2 Sat by Pulse Oximetry 97 12/21/17 11:53 Oxygen-Last Documented O2 Percentage 2 Liters = 28% Intake & Output: Intake & Output 12/19/17 12/20/17 12/21/17 12/22/17 11:59 11:59 11:59 11:59 Intake Total 720 Output Total 450 Balance 270 Weight 69 kg - Lab Result Diagrams: 12/20/17 21:00 12/20/17 21:00 Lab Results-Last 24 Hrs: Lab Results-Last 24 Hours 12/20/17 12/20/17 12/20/17 Range/Units 21:00 21:00 21:00 WBC 3.1 L (4.0-10.5) K/mm3 RBC 4.82 (4.1-5.4) M/mm3 Hgb 14.3 (12.0-16.0) gm/dl Hct 42.7 (35-47) % MCV 88.6 (78-100) fl MCH 29.7 (26-32) pg MCHC 33.5 (32-36) g/dl RDW 14.7 H (11.5-14.0) % Plt Count 89 L (150-450) K/mm3 MPV 12.1 H (6-9.5) fl Gran % 41.9 (36.0-66.0) % Eos # (Auto) 0.01 (0-0.5) Absolute Lymphs (auto) 1.29 (1.0-4.6) Absolute Monos (auto) 0.41 (0.0-1.3) Lymphocytes % 41.9 (24.0-44.0) % Monocytes % 13.3 H (0.0-12.0) % Eosinophils % 0.3 (0.00-5.0) % Basophils % 2.6 (0.0-0.4) % Absolute Granulocytes 1.29 L (1.4-6.9) Basophils # 0.08 (0-0.4) ESR 5 (0-20) mm/hr PT 11.0 (9.95-12.35) SECONDS INR 0.95 (0.8-3.0) APTT 18.7 L (25.3-37.0) SECONDS Sodium 140 (137-145) mmol/L Potassium 3.8 (3.5-5.1) mmol/L Chloride 104 (98-107) mmol/L Carbon Dioxide 26 (22-30) mmol/L Anion Gap 13.6 (5-15) MEQ/L BUN 13 (7-17) mg/dL Creatinine 0.87 (0.52-1.04) mg/dL Estimated GFR > 60.0 ML/MIN Glucose 98 (74-106) mg/dL Calcium 10.0 (8.4-10.2) mg/dL Total Bilirubin 0.40 (0.2-1.3) mg/dL AST 30 (14-36) U/L ALT 22 (0-35) U/L Alkaline Phosphatase 89 (38-126) U/L Creatine Kinase 76 (30-135) U/L Troponin I (0.000-0.034) ng/mL NT-Pro-B Natriuret Pep 54.8 (0-1800) pg/mL Serum Total Protein 7.6 (6.3-8.2) g/dL Albumin 4.9 (3.5-5.0) g/dL Triglycerides (30-150) mg/dL Cholesterol (50-200) mg/dL LDL Cholesterol (30-100) mg/dL HDL Cholesterol (40-60) mg/dL Heart Disease Risk Ratio Urine Color (YELLOW) Urine Appearance (CLEAR) Urine pH (5-6) Ur Specific [place] (1.005-1.025) Urine Protein (Negative) Urine Ketones (NEGATIVE) Urine Blood (0-5) Nitesh/ul Urine Nitrite (NEGATIVE) Urine Bilirubin (NEGATIVE) Urine Urobilinogen (0-1) mg/dL Ur Leukocyte Esterase (NEGATIVE) Urine WBC (Auto) (0-5) /HPF Urine RBC (Auto) (0-2) /HPF U Epithel Cells (Auto) (FEW) /HPF Urine Mucus (Auto) (NEGATIVE) /HPF Urine Culture Reflexed (NO) Urine Glucose (NEGATIVE) mg/dL Slides for Path Review YES 12/20/17 12/21/17 12/21/17 Range/Units 21:00 00:40 03:30 WBC (4.0-10.5) K/mm3 RBC (4.1-5.4) M/mm3 Hgb (12.0-16.0) gm/dl Hct (35-47) % MCV (78-100) fl MCH (26-32) pg MCHC (32-36) g/dl RDW (11.5-14.0) % Plt Count (150-450) K/mm3 MPV (6-9.5) fl Gran % (36.0-66.0) % Eos # (Auto) (0-0.5) Absolute Lymphs (auto) (1.0-4.6) Absolute Monos (auto) (0.0-1.3) Lymphocytes % (24.0-44.0) % Monocytes % (0.0-12.0) % Eosinophils % (0.00-5.0) % Basophils % (0.0-0.4) % Absolute Granulocytes (1.4-6.9) Basophils # (0-0.4) ESR (0-20) mm/hr PT (9.95-12.35) SECONDS INR (0.8-3.0) APTT (25.3-37.0) SECONDS Sodium (137-145) mmol/L Potassium (3.5-5.1) mmol/L Chloride (98-107) mmol/L Carbon Dioxide (22-30) mmol/L Anion Gap (5-15) MEQ/L BUN (7-17) mg/dL Creatinine (0.52-1.04) mg/dL Estimated GFR ML/MIN Glucose (74-106) mg/dL Calcium (8.4-10.2) mg/dL Total Bilirubin (0.2-1.3) mg/dL AST (14-36) U/L ALT (0-35) U/L Alkaline Phosphatase (38-126) U/L Creatine Kinase (30-135) U/L Troponin I < 0.012 0.027 0.027 (0.000-0.034) ng/mL NT-Pro-B Natriuret Pep (0-1800) pg/mL Serum Total Protein (6.3-8.2) g/dL Albumin (3.5-5.0) g/dL Triglycerides (30-150) mg/dL Cholesterol (50-200) mg/dL LDL Cholesterol (30-100) mg/dL HDL Cholesterol (40-60) mg/dL Heart Disease Risk Ratio Urine Color (YELLOW) Urine Appearance (CLEAR) Urine pH (5-6) Ur Specific [place] (1.005-1.025) Urine Protein (Negative) Urine Ketones (NEGATIVE) Urine Blood (0-5) Nitesh/ul Urine Nitrite (NEGATIVE) Urine Bilirubin (NEGATIVE) Urine Urobilinogen (0-1) mg/dL Ur Leukocyte Esterase (NEGATIVE) Urine WBC (Auto) (0-5) /HPF Urine RBC (Auto) (0-2) /HPF U Epithel Cells (Auto) (FEW) /HPF Urine Mucus (Auto) (NEGATIVE) /HPF Urine Culture Reflexed (NO) Urine Glucose (NEGATIVE) mg/dL Slides for Path Review 12/21/17 12/21/17 12/21/17 Range/Units 03:30 03:35 04:41 WBC (4.0-10.5) K/mm3 RBC (4.1-5.4) M/mm3 Hgb (12.0-16.0) gm/dl Hct (35-47) % MCV (78-100) fl MCH (26-32) pg MCHC (32-36) g/dl RDW (11.5-14.0) % Plt Count (150-450) K/mm3 MPV (6-9.5) fl Gran % (36.0-66.0) % Eos # (Auto) (0-0.5) Absolute Lymphs (auto) (1.0-4.6) Absolute Monos (auto) (0.0-1.3) Lymphocytes % (24.0-44.0) % Monocytes % (0.0-12.0) % Eosinophils % (0.00-5.0) % Basophils % (0.0-0.4) % Absolute Granulocytes (1.4-6.9) Basophils # (0-0.4) ESR (0-20) mm/hr PT (9.95-12.35) SECONDS INR (0.8-3.0) APTT (25.3-37.0) SECONDS Sodium (137-145) mmol/L Potassium (3.5-5.1) mmol/L Chloride (98-107) mmol/L Carbon Dioxide (22-30) mmol/L Anion Gap (5-15) MEQ/L BUN (7-17) mg/dL Creatinine (0.52-1.04) mg/dL Estimated GFR ML/MIN Glucose (74-106) mg/dL Calcium (8.4-10.2) mg/dL Total Bilirubin (0.2-1.3) mg/dL AST (14-36) U/L ALT (0-35) U/L Alkaline Phosphatase (38-126) U/L Creatine Kinase (30-135) U/L Troponin I 0.019 (0.000-0.034) ng/mL NT-Pro-B Natriuret Pep (0-1800) pg/mL Serum Total Protein (6.3-8.2) g/dL Albumin (3.5-5.0) g/dL Triglycerides 93 (30-150) mg/dL Cholesterol 190 (50-200) mg/dL LDL Cholesterol 68 (30-100) mg/dL HDL Cholesterol 90 H (40-60) mg/dL Heart Disease Risk Ratio 2.1 Urine Color YELLOW (YELLOW) Urine Appearance CLEAR (CLEAR) Urine pH 6.0 (5-6) Ur Specific [place] 1.009 (1.005-1.025) Urine Protein NEGATIVE (Negative) Urine Ketones NEGATIVE (NEGATIVE) Urine Blood SMALL (0-5) Nitesh/ul Urine Nitrite NEGATIVE (NEGATIVE) Urine Bilirubin NEGATIVE (NEGATIVE) Urine Urobilinogen NEGATIVE (0-1) mg/dL Ur Leukocyte Esterase NEGATIVE (NEGATIVE) Urine WBC (Auto) 0-2 (0-5) /HPF Urine RBC (Auto) 0-2 (0-2) /HPF U Epithel Cells (Auto) RARE (FEW) /HPF Urine Mucus (Auto) SLIGHT (NEGATIVE) /HPF Urine Culture Reflexed no (NO) Urine Glucose NEGATIVE (NEGATIVE) mg/dL Slides for Path Review 12/21/17 Range/Units 09:19 WBC (4.0-10.5) K/mm3 RBC (4.1-5.4) M/mm3 Hgb (12.0-16.0) gm/dl Hct (35-47) % MCV (78-100) fl MCH (26-32) pg MCHC (32-36) g/dl RDW (11.5-14.0) % Plt Count (150-450) K/mm3 MPV (6-9.5) fl Gran % (36.0-66.0) % Eos # (Auto) (0-0.5) Absolute Lymphs (auto) (1.0-4.6) Absolute Monos (auto) (0.0-1.3) Lymphocytes % (24.0-44.0) % Monocytes % (0.0-12.0) % Eosinophils % (0.00-5.0) % Basophils % (0.0-0.4) % Absolute Granulocytes (1.4-6.9) Basophils # (0-0.4) ESR (0-20) mm/hr PT (9.95-12.35) SECONDS INR (0.8-3.0) APTT (25.3-37.0) SECONDS Sodium (137-145) mmol/L Potassium (3.5-5.1) mmol/L Chloride (98-107) mmol/L Carbon Dioxide (22-30) mmol/L Anion Gap (5-15) MEQ/L BUN (7-17) mg/dL Creatinine (0.52-1.04) mg/dL Estimated GFR ML/MIN Glucose (74-106) mg/dL Calcium (8.4-10.2) mg/dL Total Bilirubin (0.2-1.3) mg/dL AST (14-36) U/L ALT (0-35) U/L Alkaline Phosphatase (38-126) U/L Creatine Kinase (30-135) U/L Troponin I 0.013 (0.000-0.034) ng/mL NT-Pro-B Natriuret Pep (0-1800) pg/mL Serum Total Protein (6.3-8.2) g/dL Albumin (3.5-5.0) g/dL Triglycerides (30-150) mg/dL Cholesterol (50-200) mg/dL LDL Cholesterol (30-100) mg/dL HDL Cholesterol (40-60) mg/dL Heart Disease Risk Ratio Urine Color (YELLOW) Urine Appearance (CLEAR) Urine pH (5-6) Ur Specific [place] (1.005-1.025) Urine Protein (Negative) Urine Ketones (NEGATIVE) Urine Blood (0-5) Nitesh/ul Urine Nitrite (NEGATIVE) Urine Bilirubin (NEGATIVE) Urine Urobilinogen (0-1) mg/dL Ur Leukocyte Esterase (NEGATIVE) Urine WBC (Auto) (0-5) /HPF Urine RBC (Auto) (0-2) /HPF U Epithel Cells (Auto) (FEW) /HPF Urine Mucus (Auto) (NEGATIVE) /HPF Urine Culture Reflexed (NO) Urine Glucose (NEGATIVE) mg/dL Slides for Path Review - Radiology Exams Ordered Rad Exams-Entire Visit: Radiology Procedures Category Date Time Status CHEST 1 VIEW (PORTABLE) Stat Exams 12/20/17 20:50 Completed HEAD WITHOUT CONTRAST [CT] Stat Exams 12/20/17 20:52 Completed - Procedures and Test Procedures and Tests throughout Hospitalization: Therapy Orders & Screens 12/20/17 23:05 EKG Q8HX2,QAMX3,PRN Comment: 12/22/17 05:00 EKG ROUTINE Comment: Diagnosis: Hypertensive crisis/TIA 12/23/17 05:00 EKG ROUTINE Comment: Diagnosis: Hypertensive crisis/TIA - Discharge Discharge Date: 12/21/17 Disposition: Home, Self-Care Condition: Stable Prescriptions: Continue ALPRAZolam [Alprazolam] 0.25 mg PO BID Rosuvastatin Calcium [Crestor] 5 mg PO HS Changed Lisinopril 5 mg PO BID #60 tablet Follow up with: JUSTINA ELLINGTON MD [Primary Care Provider] - 1 Week
[2017-12-21] MEDS ORDERED: Zocor 10MG PO SCH (22:00)
[2017-12-21] MEDS ORDERED: NON-FORMULARY ITEM (Rosuvastatin Calcium [Crestor] 5 MG) PO SCH (22:00)
[2017-12-21] MEDS ORDERED: Ecotrin 325 MG PO ONE (23:00)
== END 2017-12-21 12:55 | disposition home or self-care (01) ==
LOC: ED 20:33 → MED SURG 23:25
PROVIDERS: ADMIT General Practice; ATTEND General Practice
DX: I16.9 Hypertensive crisis, unspecified (principal); G45.9 Transient cerebral ischemic attack, unspecified; M19.90 Unspecified osteoarthritis, unspecified site; Z86.73 Personal history of transient ischemic attack (TIA), and cerebral infarction without residual deficits; Z23 Encounter for immunization; Z79.899 Other long term (current) drug therapy
CPT/HCPCS: 36000; 36415; 70450; 71045; 80053; 80061; 81001; 82550; 83721; 83880; 84484; 85025; 85610; 85652; 85730; 90662; 93005; 93041; 93268; 94760; 96374; 96375; 99285; G0008; J2060; A9270-GY; G0378

== ENCOUNTER 2021-04-01 16:24 | Emergency (ER) | payer MEDICARE, BC ==
--- NOTE | 2021-04-01 16:29 | ERPHSYRPT ---
- History of Present Illness Time Seen by Provider: 04/01/21 16:29 Source: patient Exam Limitations: no limitations Physician History: This is an 85-year-old white female patient of Dr. Ocampo who has a history of TIAs, hypertension, elevated cholesterol anxiety and was on Xanax for her anxiety. However, approximately 4 weeks ago she was taken off her Xanax in preparation for a surgery on her left knee. Patient states in the last 4 weeks she has not slept well and she has lost 25 pounds. She is not eating or drinking well. She presents with a low-grade fever of 99.4. She denies chest pain. She denies shortness of breath. She denies abdominal pain. She has had no nausea vomiting or diarrhea. Timing/Duration: week(s) (4) Severity: mild Associated Symptoms: loss of appetite, weakness, No nausea, No vomiting, No abdominal pain, No shortness of breath, No chest pain Allergies/Adverse Reactions: No Known Drug Allergies Allergy (Verified 04/01/21 16:52) Home Medications: Chlorthalidone 25 mg PO DAILY 04/01/21 [History] Cholecalciferol (Vitamin D3) [Vitamin D3] 1 ea DAILY 04/01/21 [History] Famotidine 20 mg [Pepcid 20 MG] 40 mg DAILY 04/01/21 [History] Hx Tetanus, Diphtheria Vaccination/Date Given: No Hx Influenza Vaccination/Date Given: No Hx Pneumococcal Vaccination/Date Given: Yes (4 months ago) Travel Risk - International Travel Have you traveled outside of the country in past 3 weeks: No - Coronavirus Screening Are you exhibiting any of the following symptoms?: No Close contact with a COVID-19 positive Pt in past 14-21 Days: No - Review of Systems Constitutional: Weakness Eyes: No Symptoms Ears, Nose, & Throat: No Symptoms, Throat Swelling Cardiac: No Symptoms Abdominal/Gastrointestinal: Appetite Changes, No Abdominal Pain, No Nausea, No Vomiting, No Diarrhea, No Constipation Genitourinary Symptoms: No Symptoms Musculoskeletal: No Symptoms Skin: No Symptoms Neurological: No Symptoms Psychological: No Symptoms Endocrine: No Symptoms Hematologic/Lymphatic: No Symptoms Immunological/Allergic: No Symptoms All Other Systems: Reviewed and Negative - Past Medical History Pertinent Past Medical History: Yes Neurological History: TIA ENT History: No Pertinent History Cardiac History: Hypertension Respiratory History: No Pertinent History Endocrine Medical History: No Pertinent History Musculoskeletal History: Arthritis GI Medical History: No Pertinent History History: No Pertinent History Psycho-Social History: No Pertinent History Female Reproductive Disorders: No Pertinent History - Past Surgical History Past Surgical History: Yes Neuro Surgical History: No Pertinent History Cardiac: No Pertinent History Respiratory: No Pertinent History Gastrointestinal: No Pertinent History Genitourinary: No Pertinent History Musculoskeletal: Joint Replacement Female Surgical History: No Pertinent History Other Surgical History: Right knee 4 years ago - Social History Smoking Status: Never smoker Exposure to second hand smoke: No Drug Use: none Patient Lives Alone: No - Nursing Vital Signs Nursing Vital Signs: Initial Vital Signs O2 Sat by Pulse Oximetry 97 04/01/21 16:25 Pain Scale Pain Intensity 3 - Physical Exam General Appearance: no apparent distress, alert, anxiety Eye Exam: PERRL/EOMI, eyes nml inspection Ears, Nose, Throat Exam: normal ENT inspection, moist mucous membranes Neck Exam: normal inspection, non-tender, supple, full range of motion Respiratory Exam: normal breath sounds, lungs clear, airway intact, No chest tenderness, No respiratory distress Cardiovascular Exam: regular rate/rhythm, normal heart sounds, normal peripheral pulses Gastrointestinal/Abdomen Exam: soft, normal bowel sounds, No tenderness Pelvic Exam: not done Back Exam: normal inspection, normal range of motion, No CVA tenderness, No vertebral tenderness Extremity Exam: normal inspection, normal range of motion, pelvis stable Neurologic Exam: alert, oriented x 3, cooperative, rn neonatal II-XII nml as tested, normal mood/affect, nml cerebellar function, nml station & gait, sensation nml Skin Exam: normal color, warm, dry Lymphatic Exam: No adenopathy SpO2 Interpretation: normal O2 Delivery: Room Air - Course Nursing assessment & vital signs reviewed: Yes EKG Interpreted by Me: RATE (97), Sinus Rhythm, LAFB, NORMAL QRS, NORMAL ST-T, Other (There are no acute ischemic changes on today's EKG. There are no s ignificant changes compared to EKG dated 12/20/2017.) Ordered Tests: Active Orders 24 hr Category Date Time Status Metalsmith Apprentice STAT Care 04/01/21 16:53 Active EKG-ER Only STAT Care 04/01/21 16:52 Active IV Insertion STAT Care 04/01/21 16:52 Active Pulse Oximetry (ED) STAT Care 04/01/21 16:52 Active CHEST 1 VIEW (PORTABLE) Stat Exams 04/01/21 16:53 Taken CBC W DIFF Stat Lab 04/01/21 16:52 Completed CMP Stat Lab 04/01/21 18:05 Completed INFLUENZA A+B SUZI Stat Lab 04/01/21 16:54 Ordered Manual Differential NC Stat Lab 04/01/21 16:52 Completed [place] Screen Stat Lab 04/01/21 18:05 Received NT PRO BNP Stat Lab 04/01/21 18:05 Completed TROPONIN Q3H Lab 04/01/21 18:05 Completed TROPONIN Q3H Lab 04/01/21 20:00 Ordered TROPONIN Q3H Lab 04/01/21 23:00 Ordered TROPONIN Q3H Lab 04/02/21 02:00 Ordered TROPONIN Q3H Lab 04/02/21 05:00 Ordered UA W/RFX UR CULTURE Stat Lab 04/01/21 16:56 Completed Medication Summary Generic Name Dose Route Start Last Admin Trade Name Freq PRN Reason Stop Dose Admin Potassium Chloride 20 meq in 100 mls @ 50 mls/hr 04/01/21 18:28 Potassium Chloride 20 Meq In Water 100ml IV 04/01/21 20:27 STAT ONE Discontinued Medications Generic Name Dose Route Start Last Admin Trade Name Freq PRN Reason Stop Dose Admin Sodium Chloride 500 mls @ 500 mls/hr 04/01/21 16:54 04/01/21 17:25 Sodium Chloride 0.9% 500 Ml IV 04/01/21 17:53 500 mls/hr .Q1H ONE Administration Sodium Chloride Confirm 04/01/21 17:18 Sodium Chloride 0.9% 500 Ml Administered 04/01/21 17:19 Dose 500 mls @ ud IV .STK-MED ONE Lorazepam 1 mg 04/01/21 18:08 04/01/21 18:26 Lorazepam 2 Mg/1 Ml 2 Mg Vial IV 04/01/21 18:09 1 mg STAT ONE Administration Lorazepam Confirm 04/01/21 18:24 Lorazepam 2 Mg/1 Ml 2 Mg Vial Administered 04/01/21 18:25 Dose 2 mg .ROUTE .STK-MED ONE Ondansetron HCl 4 mg 04/01/21 17:56 04/01/21 18:27 Ondansetron Hcl 4 Mg/2 Ml Vial IV 04/01/21 17:57 4 mg STAT ONE Administration Ondansetron HCl Confirm 04/01/21 18:26 Ondansetron Hcl 4 Mg/2 Ml Vial Administered 04/01/21 18:27 Dose 4 mg .ROUTE .STK-MED ONE Potassium Chloride 20 meq 04/01/21 18:28 04/01/21 18:34 Potassium Chloride 10 Meq Tablet PO 04/01/21 18:29 20 meq STAT ONE Administration Potassium Chloride Confirm 04/01/21 18:32 Potassium Chloride 10 Meq Tablet Administered 04/01/21 18:33 Dose 20 meq PO .STK-MED ONE Lab/Rad Data: Laboratory Result Diagrams 04/01/21 16:52 04/01/21 18:05 Laboratory Results 04/01/21 04/01/21 04/01/21 Range/Units 18:05 18:05 16:56 WBC (4.0-10.5) K/mm3 RBC (4.1-5.4) M/mm3 Hgb (12.0-16.0) gm/dl Hct (35-47) % MCV (78-100) fl MCH (26-32) pg MCHC (32-36) g/dl RDW (11.5-14.0) % Plt Count (150-450) K/mm3 MPV (7.5-11.0) fl Sodium 132 L (137-145) mmol/L Potassium 2.5 L* (3.5-5.1) mmol/L Chloride 90 L (98-107) mmol/L Carbon Dioxide 29 (22-30) mmol/L Anion Gap 16.2 H (5-15) MEQ/L BUN 16 (7-17) mg/dL Creatinine 1.12 H (0.52-1.04) mg/dL Estimated GFR 48.9 ML/MIN Glucose 111 H (74-106) mg/dL Calcium 9.6 (8.4-10.2) mg/dL Total Bilirubin 1.40 H (0.2-1.3) mg/dL AST 24 (14-36) U/L ALT 15 (0-35) U/L Alkaline Phosphatase 91 (38-126) U/L Troponin I < 0.012 (0.000-0.034) ng/mL NT-Pro-B Natriuret Pep 232 (0-1800) pg/mL Serum Total Protein 7.1 (6.3-8.2) g/dL Albumin 4.6 (3.5-5.0) g/dL Urine Color YELLOW (YELLOW) Urine Appearance CLEAR (CLEAR) Urine pH 6.0 (5-6) Ur Specific [place] 1.014 (1.005-1.025) Urine Protein NEGATIVE (Negative) Urine Ketones TRACE (NEGATIVE) Urine Blood SMALL (0-5) Nitesh/ul Urine Nitrite NEGATIVE (NEGATIVE) Urine Bilirubin NEGATIVE (NEGATIVE) Urine Urobilinogen NEGATIVE (0-1) mg/dL Ur Leukocyte Esterase NEGATIVE (NEGATIVE) Urine WBC (Auto) 0-2 (0-5) /HPF Urine RBC (Auto) 3-5 (0-2) /HPF U Epithel Cells (Auto) RARE (FEW) /HPF Urine Bacteria (Auto) NONE SEEN (NEGATIVE) /HPF Urine Culture Reflexed NO (NO) Urine Glucose NEGATIVE (NEGATIVE) mg/dL 04/01/21 Range/Units 16:52 WBC 17.7 H (4.0-10.5) K/mm3 RBC 4.78 (4.1-5.4) M/mm3 Hgb 13.9 (12.0-16.0) gm/dl Hct 40.5 (35-47) % MCV 84.7 (78-100) fl MCH 29.1 (26-32) pg MCHC 34.3 (32-36) g/dl RDW 13.6 (11.5-14.0) % Plt Count 93 L (150-450) K/mm3 MPV 12.4 H (7.5-11.0) fl Sodium (137-145) mmol/L Potassium (3.5-5.1) mmol/L Chloride (98-107) mmol/L Carbon Dioxide (22-30) mmol/L Anion Gap (5-15) MEQ/L BUN (7-17) mg/dL Creatinine (0.52-1.04) mg/dL Estimated GFR ML/MIN Glucose (74-106) mg/dL Calcium (8.4-10.2) mg/dL Total Bilirubin (0.2-1.3) mg/dL AST (14-36) U/L ALT (0-35) U/L Alkaline Phosphatase (38-126) U/L Troponin I (0.000-0.034) ng/mL NT-Pro-B Natriuret Pep (0-1800) pg/mL Serum Total Protein (6.3-8.2) g/dL Albumin (3.5-5.0) g/dL Urine Color (YELLOW) Urine Appearance (CLEAR) Urine pH (5-6) Ur Specific [place] (1.005-1.025) Urine Protein (Negative) Urine Ketones (NEGATIVE) Urine Blood (0-5) Nitesh/ul Urine Nitrite (NEGATIVE) Urine Bilirubin (NEGATIVE) Urine Urobilinogen (0-1) mg/dL Ur Leukocyte Esterase (NEGATIVE) Urine WBC (Auto) (0-5) /HPF Urine RBC (Auto) (0-2) /HPF U Epithel Cells (Auto) (FEW) /HPF Urine Bacteria (Auto) (NEGATIVE) /HPF Urine Culture Reflexed (NO) Urine Glucose (NEGATIVE) mg/dL - Progress Progress: improved Progress Note: 04/01/21 18:36 Chest x-ray shows no acute cardiopulmonary process. Patient desires to be discharged to home and to only take oral potassium and not intravenous. She is worried about her and wants to leave. The work-up has been completed and patient is hemodynamically stable. Counseled pt/family regarding: lab results, diagnosis, need for follow-up, rad results - Departure Departure Disposition: Home Clinical Impression: Left lower lobe pulmonary infiltrate, Weakness, Hypokalemia Condition: Stable Critical Care Time: No Referrals: IGNACIA OCAMPO MD [Primary Care Provider] - Follow up/PCP as directed Additional Instructions: Drink plenty of fluids. Take your potassium as prescribed. Follow-up appendectomy [facility] laboratory on 04/03/2021 to repeat your labs. Follow-up with Dr. Ocampo office by phone on Monday, April 05, 2021 to make arrangements for follow-up appointment. Prescriptions: Potassium Chloride 10 Meq Tab* [Klor Con 10 MEQ] 10 meq PO BID #6 tab
[2021-04-01] MEDS ORDERED: Sodium Chloride 0.9% 500 ML 500 ML IV ONE (17:18)
[2021-04-01] MEDS: Sodium Chloride 0.9% 500 ML 500 ML IV ONE (17:25)
[2021-04-01 17:42] LABS: Hematocrit 40.5 % (35-47); Hemoglobin 13.9 gm/dl (12.0-16.0); Mean Cell Volume 84.7 fl (78-100); Mean Corpuscular Hemoglobin 29.1 pg (26-32); Mean Corpuscular Hgb Concent. 34.3 g/dl (32-36); Mean Platelet Volume 12.4 fl (7.5-11.0); Platelet Count 93 K/mm3 (150-450); Red Blood Count 4.78 M/mm3 (4.1-5.4); Red Cell Distribution Width 13.6 % (11.5-14.0); White Blood Count 17.7 K/mm3 (4.0-10.5)
[2021-04-01 18:12] LABS: Appearance CLEAR (CLEAR); Bilirubin NEGATIVE (NEGATIVE); Blood SMALL Ery/ul (0-5); Epithelial Cells RARE /HPF (FEW); Glucose NEGATIVE (NEGATIVE); Ketones TRACE (NEGATIVE); Leukocyte Esterase NEGATIVE (NEGATIVE); Nitrite NEGATIVE (NEGATIVE); Protein,Urine Dip NEGATIVE (Negative); Specific Gravity 1.014 (1.005-1.025); Urobilinogen NEGATIVE mg/dL (0-1); WBC 0-2 /HPF (0-5)
[2021-04-01 18:18] LABS: Bacteria NONE SEEN /HPF (NEGATIVE)
[2021-04-01] MEDS ORDERED: Ativan 2 MG/1 ML VIAL ONE (18:24)
[2021-04-01 18:25] LABS: ALBUMIN 4.6 g/dL (3.5-5.0); ANION GAP 16.2 MEQ/L (5-15); BILIRUBIN,TOTAL 1.4 mg/dL (0.2-1.3); Calcium 9.6 mg/dL (8.4-10.2); Creatinine 1 1.12 mg/dL (0.52-1.04); EST GLOMERULAR FILTRATION RATE 48.9 ML/MIN; Total Protein 7.1 g/dL (6.3-8.2)
[2021-04-01] MEDS: Ativan 2 MG/1 ML VIAL IV ONE (18:26)
[2021-04-01] MEDS ORDERED: Zofran 4 MG/2 ML VIAL ONE (18:26)
[2021-04-01 18:27] LABS: Potassium 2.5 mmol/L (3.5-5.1)
[2021-04-01] MEDS: Zofran 4 MG/2 ML VIAL IV ONE (18:27)
[2021-04-01] MEDS ORDERED: Klor Con 10 MEQ PO ONE ×2 (18:32→18:33)
[2021-04-01] MEDS: Klor Con 10 MEQ PO ONE ×2 (18:34→18:48)
[2021-04-01] MEDS: POTASSIUM CHLORIDE 20 mEq IN WATER 100ML 20 MEQ/100 ML BAG IV ONE (18:39)
[2021-04-01 19:03] LABS: INFLUENZA A NEGATIVE (NEGATIVE); INFLUENZA B NEGATIVE (NEGATIVE)
[2021-04-01 19:11] VITALS: BP 178/82; PULSE 78; O2SAT 98
[2021-04-01 20:48] LABS: BAND 6 % (0.0-2.0); Lymphocytes 4 % (24-44); Monocyte 8 % (0.0-12.0); Neutrophils 82 % (36.0-66.0); Total Cells Counted 100
[2021-04-01 20:49] LABS: Platelet Estimate NORMAL (NORMAL)
--- NOTE | 2021-04-02 08:51 | XRAY ---
Indication: Fever and weakness. Comparison: December 20, 2017. Portable chest again hyperinflated with new left base infiltrate/atelectasis. Remaining heart and lungs unremarkable. Bony thorax intact again with osteopenia and degenerative changes.
== END 2021-04-01 19:11 | disposition home or self-care (01) ==
LOC: ED 16:24
DX: R91.8 Other nonspecific abnormal finding of lung field (principal); R53.1 Weakness; E87.6 Hypokalemia; R50.9 Fever, unspecified; I10 Essential (primary) hypertension; E78.5 Hyperlipidemia, unspecified; F41.9 Anxiety disorder, unspecified; Z79.899 Other long term (current) drug therapy
CPT/HCPCS: 36000; 36415; 71045; 80053; 81001; 83880; 84484; 85025; 86308; 87400; 93005; 93041; 94760; 96360; 96374; 96375; 99285; J2060; J2405; A9270-GY